=== PATIENT | female | born 1965 | race American Indian/Alaskan Native ===

== ENCOUNTER 2016-09-17 21:17 | Emergency (ER) | payer MEDICARE ==
[2016-09-18] MEDS ORDERED: NORCO 5/325 PO ONE (02:55)
[2016-09-18] MEDS ORDERED: FLEXERIL PO ONE (02:55)
--- NOTE | 2016-09-18 03:35 | Emergency Department Report ---
HPI - General Chief Complaint: Back Pain/Injury Time Seen by Provider: 09/18/16 02:21 - HPI HPI: Patient is a 51-year-old female with a history of fibromyalgia who presents to ED complaining of chronic neck pain. Patient states she sees in neurology out of [place] manages her pain.Patient states she was unable to make it to her Dr. Andrew she was told to come here. Patient states her doctor says she will follow -up with her on Monday. She denies fevers/chills/nausea/vomiting/abdominal pain/dizziness/headache/ blurred vision ED Past Medical Hx - Past Medical History Hx Hypertension: No Hx Heart Attack/AMI: No Hx Congestive Heart Failure: No Hx Diabetes: No Hx GERD: Yes Hx Liver Disease: No Hx Arthritis: Yes (spine) Hx Headaches / Migraines: Yes Hx Seizures: No Hx Asthma: No Hx COPD: No Hx HIV: No Additional medical history: fibromyalgia, 'cardiac problems' chronic back pain, tendonitis - Surgical History Additional Surgical History: . ovarian cysts removed - Social History Smoking Status: Never Smoker Substance Use Type: None - Medications Home Medications: Home Medications Medication Instructions Recorded Confirmed Last Taken Type Ambien 10 mg PO QHS 09/23/14 09/18/16 1 Day Ago History Baclofen [Lioresal] 10 mg PO BID 09/18/16 09/18/16 1 Day Ago History Cyclobenzaprine [Flexeril 10 MG 10 mg PO QHS #20 tablet 09/18/16 Unknown Rx TAB] HYDROcodone/APAP 5-325 [[place] 1 each PO Q6H #10 tablet 09/18/16 Unknown Rx 5-325 mg TAB] Zonisamide 25 mg PO HS 09/18/16 09/18/16 1 Day Ago History ED Review of Systems ROS: Stated complaint: BACK AND NECK PAIN Other details as noted in HPI Constitutional: denies: chills, fever Eyes: denies: eye pain, eye discharge, vision change ENT: denies: ear pain, throat pain Respiratory: denies: cough, shortness of breath, wheezing Cardiovascular: denies: chest pain, palpitations Endocrine: no symptoms reported Gastrointestinal: denies: abdominal pain, nausea, diarrhea Genitourinary: denies: urgency, dysuria, discharge Musculoskeletal: myalgia. denies: back pain, joint swelling, arthralgia Skin: denies: rash, lesions Neurological: denies: headache, weakness, paresthesias Psychiatric: denies: anxiety, depression Hematological/Lymphatic: denies: easy bleeding, easy bruising Physical Exam - Physical Exam Vital Signs: Vital Signs 09/17/16 21:50 Temperature 98.5 F Pulse Rate 75 Respiratory 16 Rate Blood Pressure 141/95 O2 Sat by Pulse 100 Oximetry Physical Exam: GENERAL: Alert and oriented x3, no apparent distress, Normal Gait, atraumatic. HEAD: Head is normocephalic and a-traumatic. NECK: Supple. Non edematous, No carotid bruits. No lymphadenopathy or thyromegaly. No C-spine tenderness. Tenderness to palpation of the trapezius muscles. full range of motion. LUNGS: Symetrical with respiration, No wheezing, no rales or crackles, CTAB. HEART: S1, S2 present, regular rate and rhythm without murmur, no rubs, no gallops. EXTREMITIES/MUSCULOSKELETAL: No cyanosis, clubbing, rash, lesions or edema. Full ROM bilaterally. UE/LE Pulses 2+ bilaterally. LE and UE 5+ strength bilaterally, straight leg raise negative bilaterally NEUROLOGIC: The patient is cooperative with no focal neurologic deficits. Cranial nerves II through XII are grossly intact. Normal speech. SKIN: Warm and dry, No lesions, No ulceration or induration present. ED Course Vital Signs 09/17/16 21:50 Temperature 98.5 F Pulse Rate 75 Respiratory 16 Rate Blood Pressure 141/95 O2 Sat by Pulse 100 Oximetry ED Medical Decision Making - Medical Decision Making 51-year-old female presented chronic neck pain ED course: Patient received Flexeril and 2 [place] Discussed the patient needs to follow-up with her neurology or primary care physician Discuss his medication as prescribed Discuss acute appointment with neurologist on Monday. Patient is alert and oriented 3 vital signs are normal she is in no acute distress. She has no neurological deficits Critical care attestation.: If time is entered above; I have spent that time in minutes in the direct care of this critically ill patient, excluding procedure time. ED Disposition Clinical Impression: Chronic neck pain Disposition: DISCHARGED TO HOME OR SELFCARE Is pt being admited?: No Does the pt Need Aspirin: No Condition: Stable Instructions: Fibromyalgia (ED), Trigger Point Pain (ED), Cervical Radiculopathy (ED) Additional Instructions: Follow-up which her neurologist. Taking her medication as prescribed. If worsened symptoms or new symptoms arise return to ED Prescriptions: Cyclobenzaprine [Flexeril 10 MG TAB] 10 mg PO QHS #20 tablet HYDROcodone/APAP 5-325 [[place] 5-325 mg TAB] 1 each PO Q6H #10 tablet Referrals: PRIMARY MD CRISTOFER [Primary Care Provider] - 3-5 Days SHONDA REILLY MD [Referring] - 3-5 Days ALEXA GOLDSMITH MD [Staff Physician] - 3-5 Days Forms: Work/School Release Form Time of Disposition: 03:39
[2016-09-18 07:15] VITALS: BP 125/74
== END 2016-09-18 04:10 | disposition home or self-care (01) ==
LOC: ED 21:17
DX: M54.2 Cervicalgia (principal); G89.29 Other chronic pain; K21.9 Gastro-esophageal reflux disease without esophagitis; M19.90 Unspecified osteoarthritis, unspecified site
CPT/HCPCS: 99282